=== PATIENT | male | born 1990 | race African-American/Black ===

== ENCOUNTER 2024-04-02 09:57 | Emergency (ER) | payer BC ==
[~2024-04-02] VITALS: Ht 188 cm; Wt 95.3 kg
[2024-04-02 10:03] VITALS: BP 162/97; TEMP 98.4
[2024-04-02] MEDS ORDERED: CETI1TAB9 PO (10:22)
[2024-04-02] MEDS ORDERED: AMOX-427 PO (10:22)
[2024-04-02 10:32] VITALS: O2SAT 99
== END 2024-04-02 10:44 | disposition home or self-care (01) ==
LOC: ER 10:17
DX: H66.91 Otitis media, unspecified, right ear (principal); Z79.899 Other long term (current) drug therapy

== ENCOUNTER 2024-07-21 22:30 | Emergency (ER) | payer BC ==
[~2024-07-21] VITALS: Ht 188 cm; Wt 99.8 kg
[~2024-07-21 22:30] MED LIST: AMOX-427 PO; CETI1TAB9 PO
[2024-07-21 23:04] VITALS: BP 150/83; TEMP 98.4; O2SAT 100
[2024-07-21] MEDS ORDERED: KETOROLAC TROMETHAMINE INJ 30 MG/ML VIAL ONE (23:13)
[2024-07-21] MEDS: KETOROLAC TROMETHAMINE INJ 30 MG/ML VIAL IM ONE (23:16)
== END 2024-07-21 23:38 | disposition home or self-care (01) ==
LOC: ER 22:30
DX: N48.30 Priapism, unspecified (principal)
CPT/HCPCS: 99283; 96372; J1885

== ENCOUNTER 2024-07-25 16:22 | Emergency (ER) | payer BC ==
[~2024-07-25] VITALS: Ht 188 cm; Wt 97.5 kg
[2024-07-25 18:26] LABS: APPEARANCE,URINE Clear (CLEAR); BILIRUBIN,URINE Negative (NEGATIVE); BLOOD, URINE Negative Ery/uL (NEGATIVE); COLOR,URINE YELLOW (YELLOW); KETONES,URINE Negative (NEGATIVE); LEUKOCYTE ESTERASE ,URINE Negative (NEGATIVE); NITRITE, URINE Negative (NEGATIVE); PROTEIN,URINE Negative (NEGATIVE); UGLUCOSE Negative (NEGATIVE); UROBILINOGEN,URINE 0.2 EU/dL (0.2)
[2024-07-25] MEDS ORDERED: KETOROLAC TROMETHAMINE INJ 30 MG/ML VIAL ONE (18:46)
[2024-07-25 18:50] VITALS: BP 147/80; TEMP 98; O2SAT 99
[2024-07-25] MEDS ORDERED: KETOROLAC TROMETHAMINE INJ 30 MG/ML VIAL IM ONE (19:00)
[2024-07-28 01:09] LABS: CHLAMYDIA TRACHOMATIS NAA Negative (Negative); NEISSERIA GONORRHOEAE NAA Negative (Negative)
== END 2024-07-25 18:50 | disposition home or self-care (01) ==
LOC: ER 16:24
DX: N50.812 Left testicular pain (principal); Z79.899 Other long term (current) drug therapy
CPT/HCPCS: 76870-TC; 87491; 87591; J1885